=== PATIENT | female | born 1955 | race Caucasian/White ===

== ENCOUNTER 2021-03-04 12:40 | Emergency (ER) | payer OTHER, SELFPAY ==
[2021-03-04 12:53] VITALS: BP 142/78; PULSE 81; RESP 18; TEMP 36.6; O2SAT 100
--- NOTE | 2021-03-04 12:58 | ED.BACK ---
HPI - Back Pain/Injury General Chief Complaint: Back Pain/Injury Stated Complaint: low back pain Time Seen by Provider: 03/04/21 12:51 Source: patient and RN notes reviewed Mode of arrival: ambulatory Limitations: no limitations History of Present Illness HPI Narrative: 65-year-old female presents to the [facility] with complaints of left lower back pain, urgency frequency and urgency. States last time she has had symptoms like this it was a UTI. Denies any loss or retention of bowel or bladder. No numbness and tingling in extremities. Pain is worse with changing of positions and with movement. Related Data Allergies Allergy/AdvReac Type Severity Reaction Status Date / Time ciprofloxacin Allergy Unknown Unknown Unverified 03/04/21 13:08 citric acid Allergy Unknown Other Verified 03/29/18 02:50 codeine Allergy Unknown Unknown Unverified 03/04/21 13:08 desmopressin Allergy Unknown Other Verified 03/29/18 02:50 hydrocodone Allergy Unknown Unknown Unverified 03/04/21 13:08 Penicillins Allergy Unknown Unknown Unverified 03/04/21 13:08 sodium phosphate Allergy Unknown Other Verified 03/29/18 02:50 morphine Allergy Unknown Verified 03/04/21 13:08 Review of Systems Review of Systems: All systems reviewed & are unremarkable except as noted in HPI and below Constitutional: Constitutional: Reports no additional constitutional complaints Eyes: Eyes: Reports no additional eye complaints ENT: Reports system reviewed and no additional complaints, except as documented Cardiovascular: Cardiovascular: Reports no additional cardiovascular complaints Respiratory: Respiratory: Reports no additional respiratory complaints Gastrointestinal: Gastrointestinal: Reports no additional gastrointestinal complaints Genitourinary: Genitourinary: Reports as per HPI, Reports nocturia and Denies dysuria Musculoskeletal: Musculoskeletal: Reports as per HPI and Reports back pain (left lower) Integumentary/Breasts: Skin/Breast: Reports system reviewed and no additional complaints, except as docu Neurologic: Reports system reviewed and no additional complaints, except as documented and Denies weakness Psychiatric: Psychiatric: Reports no additional psychiatric complaints Allergic/Immunologic: Allergic/Immunologic: Reports no additional allergic/immunologic complaints [facility] Past Medical History Medical History (Updated 03/06/21 @ 08:07 by Ruthann Escoto) No significant past medical history Social History Social History (Updated 03/06/21 @ 08:05 by Ruthann Escoto) Living arrangements: with family Gender identity (if verbalized by the patient): Female Comments At the time of my signature, I reviewed and agree with the nursing past medical, surgical, social, and family history. There is no relevant family history pertinent to the patient complaint. Exam Const: General: healthy appearing, no acute distress and alert Nutritional Appearance: well nourished Orientation/consciousness: patient oriented x3 Limitations: no limitations HENMT: Head: normal to inspection Eyes: Pupils: Equal, round and reactive pupils present Neck: Neck: normal visual inspection, no lymphadenopathy and no meningeal signs Chest: Chest palpation & inspection: normal inspection of the chest Resp: Effort & Inspection: normal respiratory effort and no use of accessory muscles Auscultation: clear to auscultation bilaterally, no crackles, no rales, no rhonchi and no wheezes Cardio: Rate: regular rate Rhythm: regular rhythm GI: GI Palp: Yes Soft to palpation, No Tenderness to palpation present (GI) and No Guarding due to palpation present (GI) Back/Spine/Pelvis: Cervical Spine: normal cervical lordosis Thoracic/Lumbar Spine: thoracic and lumbar spine normal to inspection Pelvis: sciatic notch tenderness on the right Coccyx: swelling Skin: General skin exam: normal color Rashes: no rashes Wounds: no wounds Neuro: General: patient oriented x3, moves all extrem
== END 2021-03-04 13:19 | disposition home or self-care (01) ==
PROVIDERS: Emergency Provider Nurse Practitioner; PCP Internal Medicine
DX: M54.31 Sciatica, right side (principal); E78.00 Pure hypercholesterolemia, unspecified; I10 Essential (primary) hypertension
CPT/HCPCS: 81003; 99213; G0463

== ENCOUNTER 2021-05-01 10:12 | Emergency (ER) | payer OTHER, SELFPAY ==
[2021-05-01 10:53] VITALS: BP 142/84; PULSE 87; RESP 24; TEMP 36.4; O2SAT 99
--- NOTE | 2021-05-01 11:40 | ED.URI ---
HPI - URI/Sore Throat General Chief Complaint: Upper Respiratory Infection Stated Complaint: Cough,Sinus Time Seen by Provider: 05/01/21 11:40 Source: patient Mode of arrival: ambulatory Limitations: no limitations History of Present Illness HPI Narrative: Flower Mendoza is a 65 yo female with PMH HTN, high cholesterol, adrenal insufficiency, hypothytoid, depression, who [facility] with [facility] days of cough, cold and sinus congestion. AFebrile, no nausea vomiting diarrhea Related Data Home Medications Medication Instructions Recorded Confirmed Saccharomyces boulardii [Florastor] 250 mg PO BID 05/01/21 05/01/21 famotidine 20 mg PO BID 05/01/21 05/01/21 levothyroxine 100 mcg PO DAILY 05/01/21 05/01/21 losartan 50 mg PO DAILY 05/01/21 05/01/21 prednisone [Deltasone] 2.5 mg PO DAILY 05/01/21 05/01/21 rosuvastatin 5 mg PO DAILY 05/01/21 05/01/21 somatropin 5 mg SUBCUT HS 05/01/21 05/01/21 venlafaxine 75 mg PO DAILY 05/01/21 05/01/21 Allergies Allergy/AdvReac Type Severity Reaction Status Date / Time ciprofloxacin Allergy Unknown Unknown Verified 05/01/21 14:31 citric acid Allergy Unknown Other Verified 05/01/21 14:31 codeine Allergy Unknown Unknown Verified 05/01/21 14:31 desmopressin Allergy Unknown Other Verified 05/01/21 14:31 hydrocodone Allergy Unknown Unknown Verified 05/01/21 14:31 Penicillins Allergy Unknown Unknown Verified 05/01/21 14:31 sodium phosphate Allergy Unknown Other Verified 05/01/21 14:31 morphine Allergy Unknown Verified 05/01/21 14:31 Review of Systems Review of Systems: CONSTITUTIONAL: Denies fever, chills, sweats. EYES: Denies visual changes, redness, discharge. ENT: Denies rhinorrhea, has congestion, has sore throat, otalgia. CARDIOVASCULAR: Denies chest pain, palpitations, edema. RESPIRATORY: Denies dyspnea, wheezing, has cough GASTROINTESTINAL: Denies abdominal pain, nausea, vomiting, diarrhea. GENITOURINARY: Denies dysuria, hematuria, abnormal discharge SKIN: Denies rash or itching. NEUROLOGIC: Denies numbness, or focal weakness. PSYCHIATRIC: Denies anxiety or depression. [facility] Past Medical History Medical History Adrenal abnormality Depression High cholesterol HTN (hypertension) Hypothyroid Family History Family History (Updated 05/01/21 @ 11:49 by Mai Meyers CNP) Mother Alzheimer's dementia Social History Social History (Updated 05/01/21 @ 11:48 by Mai Meyers CNP) Smoking status: Never smoker Alcohol intake: never Gender identity (if verbalized by the patient): Female Comments At time of signature, I agree with nursing past medical, surgical, social and family history. There is no relevant family history pertinent to the presenting complaint. Exam Narrative: GENERAL: This is a well-nourished, well-developed patient, in mild distress. HEAD: normocephalic, atraumatic. EYES: PERRL.ternal ears normal, auditory canals clear and without drainage, TMs normal without perforation. Hearing grossly intact. NOSE: External nose normal without nasal discharge, nares with redness, mild rhinorrhea. THROAT: Mucous membranes moist, posterior pharynx mild erythema NECK: Neck supple, non-tender CARDIOVASCULAR: Regular rate and rhythm without murmurs, gallops, or rubs. RESPIRATORY: Clear to auscultation. Breath sounds equal bilaterally. No wheezes, rales, or rhonchi. GASTROINTESTINAL: Abdomen soft, non-tender, SKIN: warm, intact with no suspicious lesions or rash, good texture and turgor. NEURO: awake, alert, and oriented to person, place and time. There were no obvious focal neurologic abnormalities. Steady gait EXTREMITIES: Normal range of motion. BACK: Nontender without deformity Course Course Emergency Course: Patient here with cough and congestion has limitation of having meds she can take as she has had her adrenal dysfunction post brain surgery in 2001. She also has limitation medication she can t
== END 2021-05-01 12:00 | disposition home or self-care (01) ==
PROVIDERS: Emergency Provider Nurse Practitioner; PCP Internal Medicine
DX: J06.9 Acute upper respiratory infection, unspecified (principal); I10 Essential (primary) hypertension; E03.9 Hypothyroidism, unspecified
CPT/HCPCS: 99213; G0463

== ENCOUNTER 2021-07-15 14:58 | Emergency (ER) | payer OTHER, SELFPAY ==
--- NOTE | ~2021-07-15 | XR_ITS ---
EXAMINATION: XR chest 2V DATE: 07/15/2021 15:33 INDICATION: Chest pain TECHNIQUE: PA and lateral views of the chest are obtained. COMPARISON: None available FINDINGS: The lungs are free of acute opacities. There is no pleural effusion or pneumothorax. The he art size is normal. There is moderate thoracic spondylosis. There is a moderate-sized hiatal hernia. IMPRESSION: 1. No acute cardiopulmonary abnormality. 2. Moderate-sized hiatal hernia. Reviewed, dictated and finalized at location [facility]. [facility]
--- NOTE | 2021-07-15 14:59 | ECG_ITS ---
Measurements Intervals [place] Rate: 95 P: 56 MT: 180 QRS: -4 QRSD: 85 T: 61 QT: 340 QTc: 428 Interpretive Statements SINUS RHYTHM VENTRICULAR PREMATURE COMPLEXES BORDERLINE ST-T WAVE ABNORMALITY- LAT/HIGH LAT LEADS BASELINE ARTIFACT- I, II, III, AVR, AVL, AVF BORDERLINE ECG Electronically Signed On 07-15-2021 19:03:47 NEWS EDITOR by Kieran Aguilera D.O.
[2021-07-15 15:05] VITALS: BP 147/81; PULSE 94; RESP 14; TEMP 37; O2SAT 100
[2021-07-15 15:28] LABS: Basophils Percent Auto 0.4 % (0.2-1.2); Eosinophils Absolute Auto 0.1 K/mm3 (0-0.3); Eosinophils Percent Auto 0.6 % (0-4.4); Hematocrit 37.3 % (37.0-47.0); Hemoglobin 12.1 g/dL (12.0-15.0); Immature Granulocyte Absolute 0.03 K/mm3 (0.00-0.031); Immature Granulocyte Percent A 0.4 % (0-0.5); Lymphocytes Absolute Auto 1.02 K/mm3 (0.9-3.2); Lymphocytes Percent Auto 13.1 % (18.3-44.2); Mean Corpuscular HGB Conc 32.4 g/dl (32-36); Mean Corpuscular Hemoglobin 28.9 pg (26-34); Mean Corpuscular Volume 89.2 fl (80-100); Mean Platelet Volume 10.3 fl (7.4-10.4); Monocytes Absolute Auto 0.5 K/mm3 (0.1-0.6); Monocytes Percent Auto 6.2 % (2.6-8.5); Neutrophils Absolute Auto 6.2 K/mm3 (1.3-6.7); Neutrophils Percent Auto 79.3 % (45.5-73.1); Platelet Count Result 310 k/mm3 (150-375); Red Blood Count 4.18 M/mm3 (4.2-5.4); White Blood Count 7.8 K/mm3 (4.5-10.0)
--- NOTE | 2021-07-15 15:31 | ED.CHESTPAIN ---
HPI - Chest Pain General Chief Complaint: Chest Pain Stated Complaint: chest pain Time Seen by Provider: 07/15/21 15:07 Source: patient, family and RN notes reviewed Limitations: no limitations History of Present Illness HPI narrative: 65-year-old female history of hypertension high cholesterol presents emerged department for evaluation of intermittent chest pain shortness of breath with some left arm pain. Patient states that intermittently at night she has been having some short lasting palpitations/flutter. Patient describes this as pain. Patient states she has also had a persistent ache of her left arm over the past 2 days. Patient denies any worsening of the ache with movement or palpation. Patient denies any previous history of PE or DVT. Patient denies any previous OR work-up/or history of OR. Department patient states that she does still have the ache of her left arm but denies any associated chest pain. Patient states she normally does walk approximately 7 miles a day and that she does not often have shortness of breath but does feel that she has had some increased shortness breath with walking as of lately. Patient did have a ground-level fall this morning related to ice landing on her left hip. Patient denies any pain or injury from that. Patient denies any change in her symptoms from that fall. Related Data Home Medications Medication Instructions Recorded Confirmed Saccharomyces boulardii [Florastor] 250 mg PO BID 05/01/21 05/01/21 famotidine 20 mg PO BID 05/01/21 05/01/21 levothyroxine 100 mcg PO DAILY 05/01/21 05/01/21 losartan 50 mg PO DAILY 05/01/21 05/01/21 prednisone [Deltasone] 2.5 mg PO DAILY 05/01/21 05/01/21 rosuvastatin 5 mg PO DAILY 05/01/21 05/01/21 somatropin 5 mg SUBCUT HS 05/01/21 05/01/21 venlafaxine 75 mg PO DAILY 05/01/21 05/01/21 Allergies Allergy/AdvReac Type Severity Reaction Status Date / Time ciprofloxacin Allergy Unknown Unknown Verified 05/01/21 14:31 citric acid Allergy Unknown Other Verified 05/01/21 14:31 codeine Allergy Unknown Unknown Verified 05/01/21 14:31 desmopressin Allergy Unknown Other Verified 05/01/21 14:31 hydrocodone Allergy Unknown Unknown Verified 05/01/21 14:31 Penicillins Allergy Unknown Unknown Verified 05/01/21 14:31 sodium phosphate Allergy Unknown Other Verified 05/01/21 14:31 morphine Allergy Unknown Verified 05/01/21 14:31 Review of Systems Review of Systems: CONSTITUTIONAL: Denies fever, chills, or sweats. EYES: Denies visual changes, redness, or discharge. ENT: Denies rhinorrhea, congestion, sore throat, or otalgia. CARDIOVASCULAR: Heart palpitations/flutter RESPIRATORY: Intermittent shortness of breath with exertion GASTROINTESTINAL: Denies abdominal pain, nausea, vomiting, or diarrhea. GENITOURINARY: Denies dysuria or hematuria. SKIN: Denies rash or itching. MUSCULOSKELETAL: Denies back pain, joint pain, or myalgia. NEUROLOGIC: Denies headache, numbness, or weakness. [facility] Past Medical History Medical History Adrenal abnormality Depression High cholesterol HTN (hypertension) Hypothyroid Family History Family History (Updated 05/01/21 @ 11:49 by Mai Meyers CNP) Mother Alzheimer's dementia Social History Social History (Updated 05/01/21 @ 11:48 by Mai Meyers CNP) Smoking status: Never smoker Alcohol intake: never Gender identity (if verbalized by the patient): Female Exam Narrative: APPEARANCE: Well appearing, no pain, no distress, well-nourished. HEAD: normocephalic, atraumatic. EYES: PERRLA/EOMI, conjunctivae clear. NECK: Supple. No adenopathy, no masses. RESPIRATORY: Airway patent, respirations nonlabored. Clear to auscultation bilaterally, no rales, rhonchi, wheezing. CARDIOVASCULAR: Regular rate and rhythm without murmurs rubs or gallops. ABDOMINAL: Soft, nontender, nondistended, normal bowel sounds MUSCULOSKELETAL: Moves all extremities. Strength/ROM intact
[2021-07-15 15:38] LABS: INR 0.9; Partial Thromboplastin Time 26.8 SECONDS (22.3-36.8); Prothrombin Time 12.2 Seconds (11.1-14.7)
[2021-07-15 15:40] LABS: Alanine Aminotransferase 17 U/L (4-35); Albumin Level 4.4 g/dL (3.5-5.1); Alkaline Phosphatase 75 U/L (38-126); Anion Gap 7 mmol/L (8-16); Aspartate Amino Transferase 24 U/L (14-36); Bilirubin,Total 0.8 mg/dL (0.2-1.3); Blood Urea Nitrogen 17 mg/dL (7-17); Calcium 9.1 mg/dL (8.4-10.2); Carbon Dioxide 24 mmol/L (22-30); Chloride 106 mmol/L (98-107); Estimated CRCL calculation 42 ml/min; Estimated Glomerular Filt Rate 50; Glucose 127 mg/dL (65-110); Lipase 113 U/L (23-300); Potassium 3.9 mmol/L (3.4-5.0); Sodium 137 mmol/L (137-145)
[2021-07-15 15:52] LABS: Troponin I < 0.012 ng/mL (0.000-0.034)
[2021-07-15] MEDS: ASPIRIN 81 MG CHEWABLE TABLET 324 MG PO (16:17)
[2021-07-15 16:52] LABS: NT Pro B Type Natriuretic Pept 102 pg/mL (5-100)
[2021-07-15 18:57] VITALS: BP 124/93; PULSE 81; RESP 17; O2SAT 97
[2021-07-15 18:57] LABS: Troponin I < 0.012 ng/mL (0.000-0.034)
[2021-07-15] MEDS: FUROSEMIDE 20 MG TABLET PO (19:46)
[2021-07-15 21:02] VITALS: BP 137/91; PULSE 72; RESP 19; TEMP 36.6; O2SAT 98
== END 2021-07-15 20:56 | disposition home or self-care (01) ==
PROVIDERS: Emergency Medicine; Emergency Provider Emergency Medicine
DX: R06.02 Shortness of breath (principal); E78.00 Pure hypercholesterolemia, unspecified; I10 Essential (primary) hypertension; E03.9 Hypothyroidism, unspecified; K44.9 Diaphragmatic hernia without obstruction or gangrene; I49.3 Ventricular premature depolarization; R94.31 Abnormal electrocardiogram [ECG] [EKG]
CPT/HCPCS: 36415; 71046; 80053; 83690; 83880; 84484; 85025; 85610; 85730; 93005; 99284; A9270

== ENCOUNTER 2023-07-03 15:21 | Emergency (ER) | payer MEDICARE, OTHER, SELFPAY ==
--- NOTE | 2023-07-03 15:24 | ED.URI ---
HPI - URI/Sore Throat General Chief Complaint: Upper Respiratory Infection Stated Complaint: Cough and Headache Time Seen by Provider: 07/03/23 15:23 Source: patient Mode of arrival: ambulatory Limitations: no limitations History of Present Illness HPI Narrative: Flower is a 67-year-old female patient presenting to clinic today with complaints of cough and headache x3 days. She reports no known fever or chills. Reports she has got a runny nose as well. MD elicited complaint: sore throat and nasal congestion Related Data Home Medications Medication Instructions Recorded Confirmed Saccharomyces boulardii 250 mg 250 mg PO BID 05/01/21 05/01/21 capsule (Florastor) famotidine 20 mg tablet 20 mg PO BID 05/01/21 05/01/21 levothyroxine 100 mcg tablet 100 mcg PO DAILY 05/01/21 05/01/21 losartan 50 mg tablet 50 mg PO DAILY 05/01/21 05/01/21 prednisone 2.5 mg tablet 2.5 mg PO DAILY 05/01/21 05/01/21 rosuvastatin 5 mg tablet 5 mg PO DAILY 05/01/21 05/01/21 somatropin 20 mg/2 mL (10 mg/mL) 5 mg subcut HS 05/01/21 05/01/21 subcutaneous pen injector venlafaxine 75 mg tablet,extended 75 mg PO DAILY 05/01/21 05/01/21 release 24 hr Allergies Allergy/AdvReac Type Severity Reaction Status Date / Time codeine AdvReac Intermediate Other Verified 07/03/23 15:47 desmopressin AdvReac Intermediate Other Verified 07/03/23 15:47 ibuprofen AdvReac Intermediate Ulcers Verified 07/03/23 15:48 morphine AdvReac Intermediate Other Verified 07/03/23 15:47 ciprofloxacin AdvReac Mild Rash Verified 07/03/23 15:47 citric acid AdvReac Mild Rash Verified 07/03/23 15:47 hydrocodone AdvReac Mild Rash Verified 07/03/23 15:47 Penicillins AdvReac Mild Rash Verified 07/03/23 15:47 sodium phosphate AdvReac Unknown Other Verified 07/03/23 15:47 Review of Systems Review of Systems: Pertinent positives per HPI. Patient denies any fever, chills, rash, visual changes, dizziness, shortness of breath, chest pain, palpitations, nausea, vomiting, diarrhea, constipation, abdominal pain, or any urinary issues. PMFSH Past Medical History Medical History Adrenal abnormality Depression High cholesterol HTN (hypertension) Hypothyroid Family History Family History Mother Alzheimer's dementia Social History Social History Smoking status: Never smoker Alcohol intake: never Living arrangements: with family Gender identity (if verbalized by the patient): Female Comments At the time of my signature, I reviewed and agree with the nursing past medical, surgical, social, and family history. There is no relevant family history pertinent to the patient complaint. Exam Narrative: General: Well-developed, well nourished, in no apparent distress Head: Normocephalic, atraumatic Eyes: Pupils equally round and reactive to light bilaterally, EOM intact, sclera and conjunctive clear, no discharge, lids normal Ears: TMs intact and congested, ear canals clear, no drainage, grossly hearing normal. Nose: Nares patent, clear nasal discharge, no inflammation, no sinus tenderness. Mouth: Oral pharynx without lesions or masses, good dentition, MMM. Neck: Supple, trachea midline, no enlargement of anterior or posterior cervical nodes, no thyroid masses or goiter palpable. Cardio: Regular rate and rhythm, s1 and s2 normal, no murmur appreciated. Resp: Clear to auscultation bilaterally, no rhonchi, rales, wheezing or rubs Course Course Emergency Course: Portions of this record may have been created with voice recognition software. Level of Care: Express Care Visit Vital Signs Vital signs: Vital signs reviewed MDM - URI/Sore Throat MDM Narrative Medical decision making narrative: At the time of visit patient is resting comfortably on the exam table. Patient appears to be nontox
[2023-07-03 15:37] VITALS: BP 130/76; PULSE 97; RESP 18; TEMP 36.4; O2SAT 99
== END 2023-07-03 15:55 | disposition home or self-care (01) ==
PROVIDERS: Emergency Provider Nurse Practitioner Family
DX: J06.9 Acute upper respiratory infection, unspecified (principal); E78.00 Pure hypercholesterolemia, unspecified; I10 Essential (primary) hypertension; E03.9 Hypothyroidism, unspecified; F32.A Depression, unspecified
CPT/HCPCS: 99213; G0463